=== PATIENT | female | born 2000 | race Two or more races ===

== ENCOUNTER 2025-05-03 18:53 | Inpatient (IN) | payer MEDICAID, SELFPAY ==
[2025-05-03] VITALS (22 sets, daily range): BP systolic 94–133; BP diastolic 46–74; PULSE 75–134; RESP 11–99; TEMP 36.7–38; O2SAT 97–100; BMI 34.9
[2025-05-03 19:55] LABS: Basophils % (Auto) 0 % (0-2.5); Eosinophils # (Auto) 0.2 Thou/mm3 (0.0-0.5); Eosinophils % (Auto) 2 % (0-10); Hemoglobin 12.7 g/dL (12.0-16.0); Immature Granulocytes % (Auto) 0 % (0-0); Immature Granulocytes Auto 0.03 Thou/mm3 (0.00-0.00); Lymphocytes % (Auto) 10 % (10-50); Mean Corpuscular HGB Conc 35.3 g/dl (31.0-37.0); Mean Corpuscular Hemoglobin 29.5 pg (25.0-35.0); Mean Corpuscular Volume 84 fL (80-100); Monocytes # (Auto) 0.5 Thou/mm3 (0.0-0.8); Monocytes % (Auto) 4 % (0-12); Neutrophils # (Auto) 8.9 Thou/mm3 (1.8-7.7); Neutrophils % (Auto) 84 % (37-80); Nucleated Red Blood Cell % 0 /100 WBC (0); Platelet Count 260 Thou/mm3 (140-440); RDW Standard Deviation 41.4 fL (36.4-46.3); White Blood Count 10.6 Thou/mm3 (3.6-11.0)
[2025-05-03] MEDS: RINGERS LACTATED 1000 ML 1,000 ML 100 ML IV (19:57)
[2025-05-03] MEDS: ceFAZolin/D5W 2 GM IV 2 GM/100 ML BAG IV (19:57)
[2025-05-03] MEDS: FAMOTIDINE INJ 10 MG/ML VIAL 2 ML 20 MG IV (19:57)
--- NOTE | 2025-05-03 20:01 | PD.LDHP ---
Documentation for date of: 05/03/25 OB Labor/Induct. HPI History of Present Illness : 2 Term pregnancies: 0 pregnancies: 0 Living children: 0 History of Abortions: Spontaneous and Elective: 0 History of sections: No History of : No History of present illness: 24-year-old 3 para 2-0-0-2 with due date of 05/18 with intrauterine at 37 weeks and 6 days who has care with [facility]. Patient reports that she experienced leaking of fluid starting at 1730 this evening clear fluid. Patient presented to maternal infant unit with temperature of 100.4 and heart rate in the 130s meeting criteria for sepsis. On the monitor tachycardia was noted with heart rate in the 160s to 170s. Patient denies any bleeding. She reports decreased movement all day. Comments: Previous complicated by gestational hypertension History of Present Narrative: Past medical history: Hypothyroidism, obesity, Rh-, childbirth, Rh- Past surgical history: Tonsillectomy Family history: See record Medications: multivitamin Allergies: No known drug allergies Social history: She denies any alcohol drug use or smoking Review of Systems Review of Systems Narrative Review of Systems: Denies any chest pain palpitations cough flank pain sore throat shortness of breath or lower extremity pain Past Medical History Surgical History SURGICAL: Negative Section Meds Home Medications and Allergies Home Medications ?Medication ?Instructions ?Recorded ?Confirmed ?Type vits no.130-ferrous fum 1 tab PO QDAY 05/03/25 05/03/25 History 27 mg iron-folic acid 800 mcg tablet ( Vitamin) Allergies Allergy/AdvReac Type Severity Reaction Status Date / Time No Known Allergies Allergy Verified 05/03/25 19:31 OB Exam Physical Exam Vital signs: Pulse BP Pulse Ox 131 H 133/74 H 98 05/03/25 19:03 05/03/25 19:03 05/03/25 19:36 Routine HEENT Exam Comments: Oropharynx clear Routine Neck Exam Comments: Supple Routine Respiratory Exam Comments: Clear to auscultation bilaterally Routine Cardiovascular Exam Comments: Tachycardic but regular rhythm Routine Abdominal Exam Comments: Gravid term size fundus tender Detailed Labor and Delivery Exam Dilation (cm): 2 Effacement (%): 50 station: -2 Presentation: Vertex Membranes: ruptured Routine Extremities Exam Comments: Nontender Routine Skin Exam Comments: No gross rashes or lesions OB Results Labs 05/03/25 19:44 Labs: Short CBC 05/03/25 Range/Units 19:44 WBC 10.6 (3.6-11.0) Thou/mm3 Hgb 12.7 (12.0-16.0) g/dL Hct 36.0 (36.0-46.0) % Plt Count 260 (140-440) Thou/mm3 Impressions Impression: IUP 37 weeks and 6 days Maternal sepsis Chorioamnionitis Premature rupture of membranes Category 2 tracing Remote from delivery with cervix only 2 cm delivery Informed consent was obtained and the patient made aware of the risk complications alternatives and benefits of the proposed procedure and she agrees.
[2025-05-03 20:46] LABS: Syphilis Nonreactive (Nonreactive)
--- NOTE | 2025-05-03 21:08 | ESOP_ITS ---
Operative Note - GLOBAL MARKETING MANAGER Procedure Date of procedure: 05/03/25 Procedure Performed: Intrauterine at 37 weeks and 6 days Premature rupture membranes Maternal sepsis Chorioamnionitis Remote from delivery at 2 cm. Indication: Intrauterine at 37 weeks and 6 days Premature rupture membranes Maternal sepsis Chorioamnionitis Remote from delivery at 2 cm. Pre-Op diagnosis: Intrauterine at 37 weeks and 6 days Premature rupture membranes Maternal sepsis Chorioamnionitis Category 2 tracing remote from delivery at 2 cm. Post-Op diagnosis: Intrauterine at 37 weeks and 6 days Premature rupture membranes Maternal sepsis Chorioamnionitis Category 2 tracing remote from delivery at 2 cm. Endomyometritis Endometriosis stage I Procedure description: After proper informed consent was obtained and the patient was made aware of the risks, complications, alternatives and benefits of the proposed procedure she was taken to the operating room where she underwent induction of spinal anesthesia. She was prepped and draped in the usual sterile fashion. A timeout was performed.? A Pfannenstiel skin incision was made with the scalpel and carried through to the underlying layer of fascia with the Bovie. The fascia was nicked in the midline incision and the incision was extended bilaterally with the Bovie. The inferior aspect of the fascial incision was grasped with Mauro clamps elevated and the underlying rectus muscle dissected off with the Bovie. The superior aspect the fascial incision was grasped with Mauro clamps elevated and the underlying rectus muscle dissected off with the Bovie. The rectus muscles were in the midline. The peritoneum was grasped between 2 [place] clamps and entered sharply with the Metzenbaum scissors. The peritoneum was extended superiorly and inferiorly with good visualization of the bladder. The vesicouterine peritoneum was incised transversely and the bladder flap created digitally. A Sweeden blade was inserted. A low transverse incision was made in the uterus with a scapel and the incision was extended digitally. The infant's head delivered and the mouth and nose were suctioned with the bulb suction. Nuchal cord reduced. The shoulder and body delivered atraumatically. The cord was clamped after 30 second delay cord clamping and the cord was cut.? The was handed off to the waiting Pediatric staff, cord blood was collected for lab testing. The placenta was removed complete and intact. The uterus was exteriorized and cleared of all clots and debris. The uterine incision was closed with #1-0 chromic catgut suture in a running interlocking fashion. A second layer of the same suture was used to imbricate the first layer and obtain excellent hemostasis. The vesicouterine peritoneum was closed with 2-0 chromic catgut suture in a running fashion. The firm uterus was returned to the abdomen. The gutters were cleared of all clots and debris. The peritoneum was closed with 0 chromic catgut suture in running fashion. The rectus muscle was closed with 0 chromic catgut suture. The fascia was closed with 0 Vicryl beginning at each angle and ending in the center in a running fashion. The subcutaneous tissue was irrigated with warmed normal saline solution and found to be hemostatic. The s ubcutaneous tissue was closed with 2-0 chromic catgut suture in a running fashion. The skin was closed with 4-0 Monocryl. A Dermabond Prineo dressing was applied and a sterile pressure dressing was applied.? She tolerated the procedure well. Counts were correct. I discussed with the patient the nature of her condition, intraoperative findings and expectation for recovery all? questions answered. Specimen: other (placenta) Estimated blood loss (ml): 700 Findings: Viable female infant 8/9 Cloudy amniotic fluid Placenta removed complete and intact Tight nuchal cord x 2. Uterus and ovaries contained superficial endometriotic implants. Complications: none Surgical staff Bonifacio ZACARIASA Diagnosis Discharge Diagnosis (1) delivery delivered: Status: Acute (2) Sepsis: Status: Acute (3) Chorioamnionitis: Status: Acute (4) Acute endomyometritis: Status: Acute Problem List Completed Was Problem List Reviewed/Reconciled?: Yes (2) Sepsis Qualifiers: Sepsis type: sepsis during labor (3) Chorioamnionitis Qualifiers: Fetus number: single or unspecified fetus Trimester: third trimester Qualified Code(s): O41.1230 - Chorioamnionitis, third trimester, not applicable or unspecified
--- NOTE | 2025-05-03 21:15 | PD.LDDELS ---
Data (Brush) Data Hx Section: No : 3 Term: 2 : 0 Livin Abortions: Spontaneous & Theraputic: 0 Delivery Data (Brush) Labor Data Induction/Augmentation Agent: None ROM date: 05/03/25 ROM time: 17:30 Amniotic membrane rupture type: Spontaneous Amniotic fluid description: Clear (cloudy without odor) Delivery Data EDC: 05/18/25 EDC calculated by:: LMP/early US confirmation [place] delivery date: 05/03/25 delivery time: 20:33 Gestational age (weeks): 37 Gestational age (days): 6 Placenta delivery date: 05/03/25 Placenta delivery time: 20:34 Delivered by: GEILING Delivery nurse: HARLEY JOYNER. [place] nurse: ALFREDO JOYNER. Staff Radiologist at delivery: Yes (JEFERSON FROST) Support person(s) at delivery: FOB Other staff at delivery: Jennifer SANZ RN. CEBAB2 [employer] TECH, JOSEMANUEL AGRICULTURAL SALES REPRESENTATIVE. Delivery Method Delivery method: Low Transverse Presentation: Vertex position: OP Anesthesia Type Anesthesia Type: Spinal Placenta Placenta delivery description: Manual Removal Placenta Disposition: Cultured and Sent to Pathology Cord blood sent to lab: Yes cord blood collection: Cord Blood Type Episiotomy Episiotomy description: None EBL Estimated blood loss (ml): 700 Umbilical Cord cord description: 3 Vessels, Nuchal Cord and Tight (x 2 ) Additional Procedures None Complications Complications: None [place] Data (Brush) Data 's gender: Male weight (gms): 6 lb 13.349 oz Weight (pounds): 6 lbs and 13.3 ozs 1 minute: 8 5 minutes: 9
--- NOTE | 2025-05-03 21:29 | PD.LDDS ---
DS: Providers Provider Date of admission: 05/03/25 19:26 Primary care physician: Physician No Primary/Family Admitting Provider: Yobany Fregoso MD Attending Provider on Admission: Yobany Fregoso MD Consults: 05/03/25 21:24 Referral Routine Comment: Attending Provider on DC: Yobany Fregoso MD Discharging Provider: Yobany Fregoso MD DS: Diagnosis Problem List Completed Was Problem List Reviewed/Reconciled?: Yes Summary/Hosp Course Brief History: 24-year-old 3 para 2-0-0-2 with due date of 05/18 with intrauterine at 37 weeks and 6 days who has care with [facility]. Patient reports that she experienced leaking of fluid starting at 1730 this evening clear fluid. Patient presented to maternal unit with temperature of 100.4 and heart rate in the 130s meeting criteria for sepsis. On the monitor tachycardia was noted with heart rate in the 160s to 170s. Patient denies any bleeding. She reports decreased movement all day. Peripartum Data Delivery Method: Low Transverse Episiotomy Description: None Time Spent with Patient Time attestation: Total time spent providing and/or coordinating discharge services: Exam Vital Signs Temp Pulse Resp BP Pulse Ox 99.5 F 97 18 122/57 L 98 05/03/25 19:03 05/03/25 20:05 05/03/25 19:03 05/03/25 20:05 05/03/25 19:36 Discharge Plan Plan Patient Disposition: HOME (Self Care) Disposition Comment: Stable Patient condition on transfer: Stable Prescriptions/Referrals Prescriptions/Med Rec: New hydrocodone-acetaminophen 5-325 mg tablet 1 tab PO Q6H MDD 4 PRN (Reason: pain) Qty: 20 0RF ibuprofen 600 mg tablet 600 mg PO Q6H PRN (Reason: pain) Qty: 30 0RF amoxicillin-pot clavulanate 875-125 mg tablet 1 tab PO Q12H Qty: 10 0RF No Action Vitamin 27 mg iron- 800 mcg tablet 1 tab PO QDAY Referrals: No Primary/Family,Physician [Primary Care Provider] - Patient/Caregiver Discharge Instructions Discharge Activity: activity as tolerated Other Discharge Activity Instructions:: Follow-up in the office with her primary OB provider in 1 week Other Discharge Diet Instructions: Drink a lot of water and eat healthy when breast-feeding Education Materials: After Delivery Concerns, After a , : Caring for Yourself, Feel Healthy After, Taking Opioid Medicines Print Language: Nepali Activity Restrictions/Additional Instructions: No heavy lifting, intercourse, tampons, douching, bathtubs or swimming x 6 weeks. Call for heavy vaginal bleeding, temperatures of 100.4 degrees or higher or severe depression. [facility] Stand Alone Forms: Kesha Award Info., Patient Portal Info Letter Discharge Order Discharge Orders: Discharge (Routine); Ordered 05/05/25 Ordered By: Erica Alfonso ([facility]) Planned Discharge Date 05/06/25
[2025-05-03] MEDS: OXYTOCIN in NS 20 units 20 UNIT/1,000 ML BAG 125 UNIT IV (22:45)
[2025-05-03] MEDS: AMPICILLIN/SULBAC INJ 3 GM in SODIUM CHLORIDE 0.9% (POP) 100 ML IV (23:07)
[2025-05-03 23:20] LABS: COVID-19 Antigen (In-House) Negative (Negative)
[2025-05-03] MEDS: GENTAMICIN/NS 120 MG IVPB 120 MG/100 ML BAG 200 MG IV (23:45)
[2025-05-04 01:19] LABS: Amphetamine/Metham Scrn,Ur OB Negative (Negative); Benzoylecgonine Screen, Ur OB Negative (Negative); Opiate Screen,Urine OB Negative (Negative); THC Screen,Urine OB Negative (Negative)
[2025-05-04 03:25] VITALS: BP 111/62; PULSE 87; RESP 18; TEMP 37.1; O2SAT 97
[2025-05-04 03:45] LABS: Basophils % (Auto) 0 % (0-2.5); Eosinophils % (Auto) 0 % (0-10); Hematocrit 32.7 % (36.0-46.0); Hemoglobin 11.5 g/dL (12.0-16.0); Immature Granulocytes % (Auto) 0 % (0-0); Immature Granulocytes Auto 0.03 Thou/mm3 (0.00-0.00); Lymphocytes # (Auto) 0.9 Thou/mm3 (1.0-4.8); Lymphocytes % (Auto) 10 % (10-50); Mean Corpuscular HGB Conc 35.2 g/dl (31.0-37.0); Mean Corpuscular Hemoglobin 29.6 pg (25.0-35.0); Mean Corpuscular Volume 84 fL (80-100); Monocytes # (Auto) 0.4 Thou/mm3 (0.0-0.8); Monocytes % (Auto) 5 % (0-12); Neutrophils # (Auto) 7.5 Thou/mm3 (1.8-7.7); Neutrophils % (Auto) 85 % (37-80); Nucleated Red Blood Cell % 0 /100 WBC (0); Platelet Count 202 Thou/mm3 (140-440); RDW Standard Deviation 41.4 fL (36.4-46.3); Red Blood Count 3.89 Miln/mm3 (4.00-5.20); White Blood Count 8.9 Thou/mm3 (3.6-11.0)
[2025-05-04] MEDS: AMPICILLIN/SULBAC INJ 3 GM in SODIUM CHLORIDE 0.9% (POP) 100 ML IV ×3 (06:06→18:12)
--- NOTE | 2025-05-04 07:29 | ESPR_ITS ---
RE: SAMARA ANDERSEN : 2000 DATE OF SERVICE: 05/04/2025 SUBJECTIVE: Postop #1, patient denies any problem or complaint. She is voiding and ambulating and tolerating a regular diet and passing flatus. She denies any excessive vaginal bleeding. She denies any dizziness or lightheadedness. She denies any chest pain, palpitations, shortness of breath or lower extremity pain. OBJECTIVE: Vital Signs: Blood pressure is 111/62, heart rate 87, respirations 18, temperature is 98.7, T-max is 100.4, and oxygen saturation is 97%. Lungs: Clear to auscultation bilaterally. Heart: Regular rate and rhythm. Abdomen: Dressing is dry and intact. Fundus is firm. Extremities: Nontender. LABORATORY DATA: Hemoglobin pre-delivery 12.7, post-delivery is 11.5. ASSESSMENT AND PLAN: Postoperative day #1, status post delivery and endometritis. Continue Unasyn and gentamicin. Remove dressing. Encourage ambulation. support. Possible discharge home tomorrow on antibiotics for 5 days. DT: 06:33:43 TT: 07:28:00 Ref: [id number] - TID: [id number] MTDD
[2025-05-04 08:00] VITALS: BP 122/74; PULSE 91; RESP 15; TEMP 37.3; O2SAT 97
[2025-05-04] MEDS: ENOXAPARIN SOD INJ 40 MG/0.4 ML SYRINGE SC (08:32)
[2025-05-04] MEDS: KETOROLAC INJ 30 MG/ML VIAL IVP (08:32)
--- NOTE | 2025-05-04 10:34 | PC.CC ---
ASW completed a face to face initial assessment with the mother at bedside Room 462. Present was also father named Jarrell Cueto [phone]. ASW informed pt the reasons for the SS visit and pt understood. Pt stated she delivered via at 37 weeks. Pt reports the father is in her life and they reside together with their other two children in an apartment. Pt reports prior to delivery, the pt was not working, nor was the father. Pt denies use of illicit controlled substances, denies alcohol use and tobacco use. Pt reports She receives medi-[employer] and food stamps, as well as ricardo aid. Pt reports she the infants solvent mixer will be Daija Erickson at [facility] in [place]. Pt reports she received consistent care throughout her and is ready for the infant. Father reports they have all they need for the infant, but will need to purchase diapers. Pt reports she has strong family support from both sides of her family and her spouse is a big support as well. Pt denies h/o post depression or anxiety. Pt admitted to h/o marijuana use via smoke but stated that was prior to . Pt does not plan to use marijuana upon d/c as she reports her priority is her . Pt denies h/o domestic violence and states she and her children are safe at home. ASW provided pt with community resources and she stated that if most were to occur she can reach out to [facility] or [facility] for mental health services. It should be noted that upon arrival, pt was the infant and she stated she plans to continue to breast feed at home. Pt reports the infant is latching on and there are no issues with feeding. Pt is bonding appropriately and is doing well with mother and father. At this time, there are no SS concerns and mother is doing well.
[2025-05-04 12:25] VITALS: BP 106/60; PULSE 95; RESP 18; TEMP 36.9; O2SAT 98
[2025-05-04 16:00] VITALS: BP 118/75; PULSE 97; RESP 17; TEMP 36.8; O2SAT 96
[2025-05-04 20:00] VITALS: BP 117/70; PULSE 99; RESP 18; TEMP 37.1; O2SAT 97
[2025-05-04] MEDS: IBUPROFEN TAB 400 MG TABLET 800 MG PO (20:48)
[2025-05-05] MEDS: AMPICILLIN/SULBAC INJ 3 GM in SODIUM CHLORIDE 0.9% (POP) 100 ML IV ×2 (00:05→06:13)
[2025-05-05 04:00] VITALS: BP 113/70; PULSE 72; RESP 16; TEMP 36.9; O2SAT 98
--- NOTE | 2025-05-05 07:55 | PD.LDPPPRG ---
Subjective Subjective Interval history: Patient denies fevers chills. Bleeding is light. Pain is controlled. She requests a binder for her incision. She is working on breast-feeding. She has been afebrile on Augmentin. Plan will be to check another CBC if this is stable patient can go home later today on Augmentin. Exam Vital Signs Temp Pulse Resp BP Pulse Ox O2 Del Method 98.5 F 72 16 113/70 98 Room Air 05/05/25 04:00 05/05/25 04:00 05/05/25 04:00 05/05/25 04:00 05/05/25 04:00 05/05/25 04:00 Narrative Exam Patient is alert and oriented x 3 resting comfortably in bed. Incisions clean dry and intact. Extremities show no cyanosis clubbing or edema. Objective Labs 05/04/25 03:36 Labs: Laboratory Results - last 24 hr 05/03/25 19:44 Blood Type O Negative Rho(D) IG Studies Ready Antibody Screen POSITIVE Antibody Identification Anti-D from [facility] Blood [facility] Wristband ID Yes Assessment & Plan Problem List (1) delivery delivered: Problem details: Discharge instructions given. Stanley Tylenol and Motrin for pain. Status: Acute (2) Sepsis: Status: Acute (3) Chorioamnionitis: Problem details: Augmentin. Discharge instructions given to [facility]. Call for temperatures 100.4 degrees or higher. Or erythema around incision. Status: Acute (4) Acute endomyometritis: Status: Acute Time Spent With Patient Time: Total time spent is greater than 50% in coordination of care (as documented) at patient's floor/unit and/or counseling patient:
[2025-05-05 08:00] VITALS: BP 124/77; PULSE 79; RESP 18; TEMP 37.1; O2SAT 98
[2025-05-05] MEDS: HYDROcodone/APAP 5/325 TABLET 1 TAB PO (08:15)
[2025-05-05] MEDS: ENOXAPARIN SOD INJ 40 MG/0.4 ML SYRINGE SC (08:15)
--- NOTE | 2025-05-05 08:19 | PD.LDDS ---
DS: Providers Provider Date of admission: 05/03/25 19:26 Primary care physician: Physician No Primary/Family Admitting Provider: Yobany Fregoso MD Attending Provider on Admission: Yobany Fregoso MD Consults: 05/03/25 21:24 Referral Routine Comment: Attending Provider on DC: Erica Alfonso MD ([facility]) Discharging Provider: Erica Alfonso MD ([facility]) Anticipated date of discharge: 05/05/25 DS: Diagnosis Discharge Diagnosis (1) Chorioamnionitis: Status: Acute Assessment & Plan: Patient afebrile 24 to 48 hours prior to discharge. Home on Augmentin. (2) delivery delivered: Status: Acute Assessment & Plan: Discharge instructions given including no heavy lifting intercourse tampons or douching or heavy exercise x 6 weeks. Problem List Completed Was Problem List Reviewed/Reconciled?: Yes Summary/Hosp Course Brief History: 24-year-old 3 para 2-0-0-2 with due date of 05/18 with intrauterine at 37 weeks and 6 days who has care with [facility]. Patient reports that she experienced leaking of fluid starting at 1730 this evening clear fluid. Patient presented to maternal infant unit with temperature of 100.4 and heart rate in the 130s meeting criteria for sepsis. On the monitor tachycardia was noted with heart rate in the 160s to 170s. Patient denies any bleeding. She reports decreased movement all day. Patient underwent a primary by Dr Fregoso on 05/03/2025. Please see op report for further details. Patient was on IV antibiotics x 24 hours and started on Augmentin for discharge. She remained afebrile. Labs are stable. She was discharged home postoperative day #2 in stable condition. Peripartum Data Delivery Method: Low Transverse Episiotomy Description: None Procedures: Procedures Operation Date: 05/03/25 20:11 Actual Procedure Side Surgeon p in OB Bilateral Yobany Fregoso MD complications: pelvic infection (Patient was treated for possible chorioamnionitis for 24 to 48 hours . Home on oral antibiotics) Status at Discharge Cognitive/behavioral status at discharge: Alert and oriented x 3 in no apparent distress Functional status at discharge: independent ambulation Overall status at discharge: patient is progressing back to baseline Time Spent with Patient Time attestation: Total time spent providing and/or coordinating discharge services: Specific discharge activities: No heavy lifting, tampons, douching, heavy exercise x 6 weeks call for heavy bleeding fevers or severe depression. Exam Vital Signs Temp Pulse Resp BP Pulse Ox O2 Del Method 98.5 F 72 16 113/70 98 Room Air 05/05/25 04:00 05/05/25 04:00 05/05/25 04:00 05/05/25 04:00 05/05/25 04:00 05/05/25 04:00 Narrative Exam Fundus firm nontender incision clean dry and intact fundus firm. Extremities show no cyanosis clubbing or edema Discharge Plan Plan Patient Disposition: HOME (Self Care) Disposition Comment: Stable Patient condition on transfer: Stable Prescriptions/Referrals Prescriptions/Med Rec: New hydrocodone-acetaminophen 5-325 mg tablet 1 tab PO Q6H MDD 4 PRN (Reason: pain) Qty: 20 0RF ibuprofen 600 mg tablet 600 mg PO Q6H PRN (Reason: pain) Qty: 30 0RF amoxicillin-pot clavulanate 875-125 mg tablet 1 tab PO Q12H Qty: 10 0RF No Action Vitamin 27 mg iron- 800 mcg tablet 1 tab PO QDAY Referrals: No Primary/Family,Physician [Primary Care Provider] - Patient/Caregiver Discharge Instructions Discharge Activity: activity as tolerated Other Discharge Activity Instructions:: Follow-up in the office with her primary OB provider in 1 week Other Discharge Diet Instructions: Drink a lot of water and eat healthy when breast-feeding Education Materials: After Delivery Concerns, After a , : Caring for Yourself, Feel Healthy After, Taking Opioid Medicines Print Language: [place] Activity Restrictions/Additional Instructions: No heavy lifting, intercourse, tampons, douching, bathtubs or swimming x 6 weeks. Call for heavy vaginal bleeding, temperatures of 100.4 degrees or higher or severe depression. [facility] Stand Alone Forms: Kesha Award Info., Patient Portal Info Letter Discharge Order Discharge Orders: Discharge (Routine); Ordered 05/05/25 Ordered By: Erica Alfonso ([facility]) Planned Discharge Date 05/05/25 (1) Chorioamnionitis Qualifiers: Fetus number: single or unspecified fetus Trimester: third trimester Qualified Code(s): O41.1230 - Chorioamnionitis, third trimester, not applicable or unspecified
[2025-05-05 09:58] LABS: Basophils % (Auto) 0 % (0-2.5); Eosinophils # (Auto) 0.1 Thou/mm3 (0.0-0.5); Eosinophils % (Auto) 2 % (0-10); Hematocrit 34.3 % (36.0-46.0); Hemoglobin 11.9 g/dL (12.0-16.0); Immature Granulocytes % (Auto) 0 % (0-0); Immature Granulocytes Auto 0.03 Thou/mm3 (0.00-0.00); Lymphocytes # (Auto) 1.5 Thou/mm3 (1.0-4.8); Lymphocytes % (Auto) 18 % (10-50); Mean Corpuscular HGB Conc 34.7 g/dl (31.0-37.0); Mean Corpuscular Hemoglobin 29.3 pg (25.0-35.0); Mean Corpuscular Volume 85 fL (80-100); Monocytes # (Auto) 0.7 Thou/mm3 (0.0-0.8); Monocytes % (Auto) 8 % (0-12); Neutrophils # (Auto) 6.1 Thou/mm3 (1.8-7.7); Neutrophils % (Auto) 72 % (37-80); Nucleated Red Blood Cell % 0 /100 WBC (0); Platelet Count 237 Thou/mm3 (140-440); RDW Standard Deviation 42.7 fL (36.4-46.3); Red Blood Count 4.06 Miln/mm3 (4.00-5.20); White Blood Count 8.5 Thou/mm3 (3.6-11.0)
== END 2025-05-05 12:17 | disposition home or self-care (01) | DRG 540 ==
LOC: S4SX 20:59 → S4NX 22:00 → S4SX 05-05 06:15 → S4NX 05-05 06:15 → S4SX 05-05 06:15
PROVIDERS: Obstetrics & Gynecology; Admitting Provider Specialist; Visit Provider Specialist
PROC: 10D00Z1 Extraction of Products of Conception, Low, Open Approach (ICD-10-PCS; CPT 59514; principal; 2025-05-03 20:15)
DX: O42.02 Full-term premature rupture of membranes, onset of labor within 24 hours of rupture (principal); O36.8130 Decreased fetal movements, third trimester, not applicable or unspecified; O75.3 Other infection during labor; A41.9 Sepsis, unspecified organism; Z3A.37 37 weeks gestation of pregnancy; Z37.0 Single live birth; O69.1XX0 Labor and delivery complicated by cord around neck, with compression, not applicable or unspecified; N71.0 Acute inflammatory disease of uterus; N80.9 Endometriosis, unspecified; O76 Abnormality in fetal heart rate and rhythm complicating labor and delivery; O41.1230 Chorioamnionitis, third trimester, not applicable or unspecified; Z87.59 Personal history of other complications of pregnancy, childbirth and the puerperium
CPT/HCPCS: 36415; 59025; 80307; 85025; 85461; 86780; 86850; 86870; 86900; 86901; 87811; 94762; A4649; J0295; J0689; J1580; J1650; J1885; J2274; J2371; J2405; J2590; J2790; J3010; J3490; J7050; J7120; A9270; J2270

== ENCOUNTER 2025-05-09 23:25 | Emergency (ER) | payer MEDICAID, SELFPAY ==
[2025-05-09 23:28] VITALS: BP 131/85; PULSE 94; RESP 17; TEMP 36.7; O2SAT 97; BMI 32.8
--- NOTE | 2025-05-10 00:16 | PD.EDRECHK ---
ED Recheck Abnl Lab Rx-RME/HPI General Chief Complaint: General Adult/Misc Complain Stated Complaint: ON . DRAINAGE Time Seen by Provider: 05/10/25 00:33 Arrival date/time: 05/09/25 23:25 RME / HPI RME / HPI narrative: This section includes all my notes and documentations, including HPI, PE, and ED course. Chris Myers MD HPI: 24yo female who had a recent a week ago on 05/03/25 presents to the ED for a chief complaint of drainage from her site. No worsening abdominal pain, fever, chills, nausea or vomiting. Patient has been having normal bowel movements and passing gas. No other complaints reported. ROS: All negative except as documented in HPI. Physical Exam: General: Alert and oriented. No acute distress when remaining still. Eyes: Conjunctivae and lids clear. ENT: No nasal congestion. Neck: Supple. Heart: RRR. Lungs: No respiratory distress. Good air movement. No rhonchi, wheezing, rales. Abdomen: Soft and nontender. Normal bowel sounds. No distension. No rebound or guarding. wound discharging pus. Back: No CVA tenderness. Skin: Warm and dry. Neuro: Alert and oriented X 3. I reviewed all diagnostic test results. My review of the CT abdomen pelvis report is no acute findings with recent and incidental gallstones. Blood tests are unremarkable. At this point, diagnoses include wound infection and gallstones. Recommended outpatient management. Based on my best medical judgment, made decision no further evaluation or treatment indicated at this time. Patient understands and agrees to the discharge instructions customized and printed, see below. Discharge Instructions from Dr. Myers printed for you: 1. After extensive evaluation, there is no intra-abdominal infection or surgical complication from your recent . 2. You do have wound infection. Flagyl and cefdinir to kill the germs causing your infection. Once daily for 7 days, clean the lower abdomen with soap and water. Completely dry with clean towel. Apply antibiotic ointment. Apply new dressing. 3. The CT scan also showed you have stones in your gallbladder. You need gallbladder to digest fatty food. Avoid all fatty food and beverages. 4. See your [facility] on 05/12/2025 for recheck and further care. Ask to review all test results and official radiology reports, to make sure you receive all necessary follow-ups and monitoring. Ask for help until you are completely better. 5. See your primary care provider on 05/13/2025. Ask for a referral to see general surgeon to discuss elective surgical removal of your gallbladder. 6. Seek immediate medical care with worsening or with any concerns. Chris Myers MD Related Data Home Medications ?Medication ?Instructions ?Recorded ?Confirmed vits no.130-ferrous fum 1 tab PO QDAY 05/03/25 05/03/25 27 mg iron-folic acid 800 mcg tablet ( Vitamin) Previous Rx's ?Medication ?Instructions ?Recorded amoxicillin 875 mg-potassium 1 tab PO Q12H #10 tabs 05/03/25 clavulanate 125 mg tablet hydrocodone 5 mg-acetaminophen 325 1 tab PO Q6H PRN pain #20 tabs 05/03/25 mg tablet ibuprofen 600 mg tablet 600 mg PO Q6H PRN pain #30 tabs 05/03/25 cefdinir 300 mg capsule 300 mg PO BID #20 caps 05/10/25 metronidazole 500 mg tablet 500 mg PO BID 10 days #20 tabs 05/10/25 Allergies Allergy/AdvReac Type Severity Reaction Status Date / Time No Known Allergies Allergy Verified 05/09/25 23:31 Review of Systems Review of Systems Systems Reviewed: All systems reviewed, normal except as documented Past Medical History Past Medical History NEUROLOGIC: Negative Neurological Disorders or Seizures CARDIAC: Negative Cardiac Disorders or Congestive Heart Failure RESPIRATORY: Negative Chronic Obstructive Pulmonary Disease (COPD) or Asthma GASTROINTESTINAL: Negative Gastrointestinal Disorders or Hepatitis GENITOURINARY: Negative Genitourinary Disorders or Renal Disease REPRODUCTIVE: Positive Previous Pregnancies ( x2); Negative Endometriosis, Genital Herpes, Gonorrhea, Pelvic Inflammatory Disease, Syphilis or Uterine Prolapse MUSCULOSKELETAL: Negative Musculoskeletal Disorders or Scoliosis ENDOCRINE: Negative Endocrine Disorders, Diabetes Mellitus Type 1 or Diabetes Mellitus Type 2 HEMATOLOGIC: Negative Blood Disorders, Anemia, Leukemia, Hemophilia, Thalassemia, Sickle Cell Disease or Clotting Problems PSYCHO/SOCIAL: Negative Depression, Anxiety, Attention Deficit Hyperactivity Disorder, Depression or Post Traumatic Stress Disorder OTHER HISTORY: Negative Hospitalization, Autoimmune Disease, Down Syndrome, Developmental Delay, Shingles, Falls, Blood Transfusions, Blood Transfusion Reaction, Anesthesia Reactions, Organ Transplant, Chemotherapy, Radiation Therapy, Hyperbaric Therapy, MRSA, VRSA, Vancomycin-Resistant Enterococci, Human Immunodeficiency Virus (HIV), Chicken Pox, Measles, Mumps, Rubella ([place] Measles), Pertussis, Clostridium Difficile or Cancer Family History FAMILY HISTORY: Negative Family Psychiatric Problems, Family Respiratory Disorders, Family Cardiac Disorders, Family Gastrointestinal Problems, Family Cancer, Family Surgery or Family Anesthesia Reaction Surgical History SURGICAL: Positive Tonsillectomy; Negative Section or Organ Transplant Social History SMOKING STATUS: Never smoker SUBSTANCE USE: marijuana (daily ) ED Exam Narrative Physical exam: As noted in HPI. Course Quality Measures none Orders Category Date Time Status CT abdomen pelvis wo con Stat Exams 05/10/25 00:17 Taken BMP [Basic Metabolic Panel] Stat Lab 05/10/25 00:31 Completed CBC Stat Lab 05/10/25 00:31 Completed Magnesium Stat Lab 05/10/25 00:31 Completed Vital Signs Vital signs: Vital Signs Temperature 98.1 F 05/09/25 23:28 Pulse Rate 94 05/09/25 23:28 Respiratory Rate 17 05/09/25 23:28 Blood Pressure 131/85 H 05/09/25 23:28 Pulse Oximetry (%) 97 05/09/25 23:28 Oxygen Delivery Method Room Air 05/09/25 23:28 Recheck / Abnormal Lab / Rx MDM Narrative MDM Narrative:: 24yo female who had a recent on 05/03/25 presents to the ED for a chief complaint of drainage from her site. No worsening abdominal pain, fever, chills, nausea or vomiting. Patient has been having normal bowel movements and passing gas. No other complaints reported. Patient data External records reviewed:: [facility] previous records (Per chart review, patient has no relevant previous ED visits.) Clinical information provided by:: patient Social determinants that could affect healthcare access:: none Patient has the following chronic illnesses:: none How is presenting disease/condition affected by chronic disease/condition?: no chronic disease Evaluation data The following diagnostics were reviewed and interpreted by me:: lab results and radiology exam(s) Lab and/or radiology exams considered but not ordered:: none Interpretation Summary: I reviewed all diagnostic test results. My review of the CT abdomen pelvis report is no acute findings with recent and incidental gallstones. Blood tests are unremarkable. Medications / Prescriptions Medications or Prescriptions considered but not ordered:: none Medication administrations:: none Consultations Consultation(s) initiated? (list below): No Diagnosis Recheck Differential Diagnosis: other (Wound infection, cellulitis, intra-abdominal infection/abscess, intra-abdominal surgical complication) Most likely diagnosis given after review of the tests above:: Wound infection and cholelithiasis. Admission Indicated Admission indicated?: not indicated Explain why admission is indicated or not indicated:: With no condition needing emergent intervention, there was no indication for admission. Admission Request Was there a request for admission?: No Disposition Plan Disposition Plan: Discharge Discharge Attestation Discharge Attestation: The patient and all family members were given an opportunity to ask questions and understood the discharge instructions. Discharge instructions specifically effects, indications for sooner follow up or return to the emergency department, and the expected course of current diagnosis. Patient condition: Stable Discharge Plan Plan Patient Disposition: HOME (Self Care) Prescriptions/Referrals Prescriptions/Med Rec: New metronidazole 500 mg tablet 500 mg PO BID 10 Days Qty: 20 0RF cefdinir 300 mg capsule 300 mg PO BID Qty: 20 0RF No Action Vitamin 27 mg iron- 800 mcg tablet 1 tab PO QDAY hydrocodone-acetaminophen 5-325 mg tablet 1 tab PO Q6H MDD 4 PRN (Reason: pain) Qty: 20 0RF ibuprofen 600 mg tablet 600 mg PO Q6H PRN (Reason: pain) Qty: 30 0RF amoxicillin-pot clavulanate 875-125 mg tablet 1 tab PO Q12H Qty: 10 0RF Referrals: Cynthia Masters FNP [Primary Care Provider] - In 1 week Problem List Clinical Impression: Wound, surgical, infected, Gallstones Patient/Caregiver Discharge Instructions Discharge Activity: activity as tolerated Education Materials: ED Gallstones with Biliary Colic, ED Post Op Wound Check, Infection Additional Instructions: Discharge Instructions from Dr. Myers printed for you: 1. After extensive evaluation, there is no intra-abdominal infection or surgical complication from your recent . 2. You do have wound infection. Flagyl and cefdinir to kill the germs causing your infection. Once daily for 7 days, clean the lower abdomen with soap and water. Completely dry with clean towel. Apply antibiotic ointment. Apply new dressing. 3. The CT scan also showed you have stones in your gallbladder. You need gallbladder to digest fatty food. Avoid all fatty food and beverages. 4. See your [employer] on 05/12/2025 for recheck and further care. Ask to review all test results and official radiology reports, to make sure you receive all necessary follow-ups and monitoring. Ask for help until you are completely better. 5. See your primary care provider on 05/13/2025. Ask for a referral to see general surgeon to discuss elective surgical removal of your gallbladder. 6. Seek immediate medical care with worsening or with any concerns. Print Language: Citizen Of [place] Stand Alone Forms: [employer] Award Info., Patient Portal Info Letter
--- NOTE | 2025-05-10 00:17 | XR_ITS ---
Examination: CT abdomen and pelvis without contrast. Coronal 3-D reconstructions. Sagittal 2-D reconstructions. Date and time of exam:May 10, 2025 0137 hours Comparison September 30, 2019 INDICATIONS: Lower abdominal pain CTDI: vol (mGy): 9.5 DLP: (mGycm): 491 Technique: Axial images of the abdomen have been obtained, 3 mm slice thickness Intravenous contrast material has not been administered. Low dose protocols were performed. One or more of the following dose reduction techniques were used; automated exposure control, adjustment of the mA and/or KV according to patient size, use of iterative reconstruction technique. Findings: No focal liver or splenic lesions Abnormal gallbladder, distended, gallstones with gallbladder wall thickening No pancreatic or adrenal mass No renal or ureteral calculi, no hydronephrosis No pericecal inflammatory change enlarged uterus with thickened endometrial stripe in the lower uterine segment hyperdense Urinary bladder intact, mild wall thickening Small lymph nodes in the mesentery Osseous structures intact IMPRESSION: Acute calculus cholecystitis, recommend hepatobiliary sonography follow-up enlarged uterus, suspicious for retained products of conception versus blood products, consider pelvic sonography follow-up
[2025-05-10 00:47] LABS: Basophils % (Auto) 0 % (0-2.5); Eosinophils # (Auto) 0.7 Thou/mm3 (0.0-0.5); Eosinophils % (Auto) 7 % (0-10); Hematocrit 35.2 % (36.0-46.0); Immature Granulocytes % (Auto) 0 % (0-0); Immature Granulocytes Auto 0.03 Thou/mm3 (0.00-0.00); Lymphocytes # (Auto) 3.4 Thou/mm3 (1.0-4.8); Lymphocytes % (Auto) 33 % (10-50); Mean Corpuscular HGB Conc 34.1 g/dl (31.0-37.0); Mean Corpuscular Hemoglobin 29.7 pg (25.0-35.0); Mean Corpuscular Volume 87 fL (80-100); Monocytes # (Auto) 0.6 Thou/mm3 (0.0-0.8); Monocytes % (Auto) 6 % (0-12); Neutrophils # (Auto) 5.6 Thou/mm3 (1.8-7.7); Neutrophils % (Auto) 54 % (37-80); Nucleated Red Blood Cell % 0 /100 WBC (0); Platelet Count 341 Thou/mm3 (140-440); RDW Standard Deviation 41.6 fL (36.4-46.3); Red Blood Count 4.04 Miln/mm3 (4.00-5.20); White Blood Count 10.3 Thou/mm3 (3.6-11.0)
[2025-05-10 01:04] LABS: Anion Gap 10 (7-16); BUN/Creatinine Ratio 16 Ratio (12-20); Blood Urea Nitrogen 8 mg/dL (9-23); Calcium 8.4 mg/dL (8.3-10.6); Carbon Dioxide 27.9 mMol/L (20.0-31.0); Chloride 105 mMol/L (98-107); Creatinine (Component) 0.5 mg/dL (0.6-1.3); Estimated Creatinine Clearance 163.6 mL/min (>60); Glucose 108 mg/dL (74-106); Magnesium 2.2 mg/dL (1.6-2.6); Osmolality,Calculated 284 (275-295); Potassium 3.8 mMol/L (3.4-5.1); Sodium 143 mMol/L (136-145); eGFR > 60 See Note
[2025-05-10 02:54] VITALS: BP 119/71; PULSE 78; RESP 20; TEMP 36.9; O2SAT 96
--- NOTE | 2025-05-10 03:44 | PRELIM_ITS ---
CT scan of the abdomen and pelvis without intravenous contrast (axial sections with sagittal and coronal reformats) May 10, 2025 0137 hours Clinical History: Drainage after . Reference is made to the prior CT abdomen and pelvis preliminary report dated 10/01/2019. No prior images available at the time of interpretation. Findings: The gallbladder is moderately distended demonstrating multiple small calculi. There is associated marked wall edema and pericholecystic fat stranding. Mildly prominent intrahepatic bile duct is seen. The spleen, adrenals, pancreas and kidneys are unremarkable. There is no bowel obstruction. A moderate amount of fecal material is seen in the colon. Appendix is within normal limits on coronal images [id number]. Involuting uterus is seen. Hyperdensities are seen within the endometrial cavity of the uterus which may represent a small blood clot. There is no adnexal mass. There is a small amount of free fluid in the lower abdomen and pelvis. No definite free air. A few prominent lymph nodes are seen at the root of the mesentery and in the right lower quadrant. The urinary bladder is partially distended and shows mild wall thickening; possibility of cystitis cannot be excluded. Aorta is unremarkable on this non- contrast study. There are postoperative changes in the suprapubic ventral abdominal wall, which may be related to recent section. There are small marginal osteophytes involving the vertebrae. The visualized lung bases are clear. No pleural effusion is seen. Please note that evaluation of soft tissue/vascular structures and bowel loops is limited due to absence of IV and oral contrast. Impression: 1. Status post recent section with probable small blood clot within the endometrial cavity of the involuting uterus. No evidence of loculated fluid collection in the ventral pelvic wall. 2. Small amount of free fluid in the pelvis. 3. Distended gallbladder with gallstones and wall thickening, suspicious for acute cholecystitis. 4. Multiple prominent mesenteric lymph nodes are noted in the right lower quadrant and at the root of the mesentery; possibility of mesenteric adenitis cannot be excluded. 5. Partially distended urinary bladder with mild wall thickening; possibility of cystitis cannot be excluded. 6. Other findings as described above. Suggest clinical correlation and follow up accordingly. Discussion Details: Results Discussed With : Dr. Myers at 03:26 AM 05/10/2025 Report Electronically Signed By: Toy Kingston 05/10/2025 3:44:15 AM [EST]
== END 2025-05-10 04:02 | disposition home or self-care (01) ==
PROVIDERS: Emergency Provider Emergency Medicine; PCP Nurse Practitioner Family
DX: O86.01 Infection of obstetric surgical wound, superficial incisional site (principal); O99.63 Diseases of the digestive system complicating the puerperium; K80.20 Calculus of gallbladder without cholecystitis without obstruction
CPT/HCPCS: 36415; 74176; 80048; 83735; 85025; 99284